=== PATIENT | female | born 1995 | race Caucasian/White ===

== ENCOUNTER → 2016-12-31 | Outpatient (CLI) | payer BC ==
[~2016-12-31] MED LIST: PREN-63
[2016-12-31 17:46] LABS: URINE APPEARANCE CLEAR (CLEAR); URINE BILIRUBIN NEG (NEG); URINE COLOR YELLOW; URINE NITRITE NEG (NEG); URINE PH 5.5 (4.5-7.5); URINE SPECIFIC GRAVITY 1.007 (1.000-1.030); UROBILINOGEN NEG (NEG)
[2016-12-31 17:56] LABS: MANUAL MICROSCOPIC REQUIRED? NO; REVIEW REQ? NO
== END | disposition home or self-care (01) ==
LOC: C.LABSPEC 17:29
PROVIDERS: ATTEND Obstetrics & Gynecology
DX: Z34.00 Encounter for supervision of normal first pregnancy, unspecified trimester (principal)

== ENCOUNTER → 2017-01-07 | Outpatient (CLI) | payer BC ==
[2017-01-10 23:56] LABS: CHLAMYDIA TRACH RNA*** NOT DETECTED (NOT DETECTED); GC (NEIS GONORRHOEAE)RNA** NOT DETECTED (NOT DETECTED)
== END | disposition home or self-care (01) ==
LOC: C.LABSPEC 17:44
PROVIDERS: ATTEND Obstetrics & Gynecology
DX: Z34.00 Encounter for supervision of normal first pregnancy, unspecified trimester (principal)

== ENCOUNTER → 2017-01-07 | Outpatient (CLI) | payer BC | END | disposition home or self-care (01) | LOC: C.PAPS 10:52 | PROVIDERS: ATTEND Obstetrics & Gynecology | DX: Z34.01 Encounter for supervision of normal first pregnancy, first trimester (principal) ==

== ENCOUNTER → 2017-01-07 | Outpatient (CLI) | payer BC ==
[2017-01-07 16:40] LABS: BASO % 0.3 %; BASO ABS # 0.03 K/uL (0-0.2); COMPLETE YES; EOS % 0.8 %; HEMATOCRIT 41.6 % (37-47); IG% 0.4 %; LYMPH % 16.2 %; LYMPH ABS # 1.69 K/uL (1.2-3.4); MEAN CELL VOLUME 91.4 fL (80-100); MEAN CORPUSCULAR HEMOGLOBIN 31.9 pg (25-34); MEAN CORPUSCULAR HGB CONC 34.9 g/dl (32-36); MEAN PLATELET VOLUME 10.7 fL (7.4-10.4); MONO % 6.8 %; NEUT % 75.5 %; PLATELET COUNT 269 K/uL (130-400); RED BLOOD COUNT 4.55 M/uL (4.2-5.4); WHITE BLOOD COUNT 10.45 K/uL (4.8-10.8)
== END | disposition home or self-care (01) ==
LOC: C.LAB1850 15:26
PROVIDERS: ATTEND Obstetrics & Gynecology
DX: Z34.00 Encounter for supervision of normal first pregnancy, unspecified trimester (principal)

== ENCOUNTER → 2017-03-04 | Outpatient (CLI) | payer BC ==
[2017-03-04 17:10] LABS: GTGD 50 Grams
== END | disposition home or self-care (01) ==
LOC: C.LAB1850 13:53
PROVIDERS: ATTEND Obstetrics & Gynecology
DX: O09.92 Supervision of high risk pregnancy, unspecified, second trimester (principal); Z3A.00 Weeks of gestation of pregnancy not specified

== ENCOUNTER → 2017-06-03 | Outpatient (CLI) | payer BC ==
[2017-06-03 16:29] LABS: GTGD 50 Grams
[2017-06-03 16:36] LABS: URINE APPEARANCE CLEAR (CLEAR); URINE BILIRUBIN NEG (NEG); URINE COLOR YELLOW; URINE EPITHELIAL CELL AUTO >30 /lpf (0-5); URINE NITRITE NEG (NEG); URINE PH 6.5 (4.5-7.5); UROBILINOGEN NEG (NEG)
[2017-06-03 17:03] LABS: MANUAL MICROSCOPIC REQUIRED? NO; REVIEW REQ? NO
== END | disposition home or self-care (01) ==
LOC: C.LAB1850 14:13
PROVIDERS: ATTEND Obstetrics & Gynecology
DX: O09.92 Supervision of high risk pregnancy, unspecified, second trimester (principal); Z3A.00 Weeks of gestation of pregnancy not specified

== ENCOUNTER → 2017-06-17 | Outpatient (CLI) | payer BC | END | disposition home or self-care (01) | LOC: C.LAB1850 08:19 | PROVIDERS: ATTEND Obstetrics & Gynecology | DX: O09.92 Supervision of high risk pregnancy, unspecified, second trimester (principal); Z3A.00 Weeks of gestation of pregnancy not specified; O28.1 Abnormal biochemical finding on antenatal screening of mother ==

== ENCOUNTER → 2017-07-22 | Outpatient (CLI) | payer BC | END | disposition home or self-care (01) | LOC: C.LABSPEC 17:29 | PROVIDERS: ATTEND Obstetrics & Gynecology | DX: Z34.03 Encounter for supervision of normal first pregnancy, third trimester (principal) ==

== ENCOUNTER 2017-08-08 19:00 | Outpatient (CLI) | payer BC ==
[2017-08-08] MEDS ORDERED: ACETAMINOPHEN 500 MG TAB PO STA (20:39)
[2017-08-09] MEDS ORDERED: PREN-63 (07:45)
== END 2017-08-08 21:05 | disposition home or self-care (01) ==
LOC: C.LD 19:00 → C.OPB 19:00
PROVIDERS: ATTEND Obstetrics & Gynecology
DX: O16.3 Unspecified maternal hypertension, third trimester (principal); Z3A.38 38 weeks gestation of pregnancy

== ENCOUNTER 2017-08-09 07:25 | Inpatient (IN) | payer BC ==
[~2017-08-09] VITALS: Ht 162.6 cm; Wt 86.8 kg
[2017-08-09] MEDS ORDERED: LACTATED RINGER'S 1000ML 500 ML IV PRN ×2 (07:30→15:10)
[2017-08-09] MEDS ORDERED: LACTATED RINGER'S 1000ML 1,000 ML IV PRN (07:30)
[2017-08-09] MEDS ORDERED: OXYTOCIN 30 UNITS/500ML NSS IV PRN ×2 (07:30→17:45)
[2017-08-09] MEDS ORDERED: PATIENT'S ALLERGY INFO NEEDS ENTERED SCH (07:45)
[2017-08-09] MEDS ORDERED: PREN-63 (07:45)
[2017-08-09 07:49] VITALS: Ht 162.6 cm; Wt 86.8 kg
[2017-08-09 08:00] LABS: HEMATOCRIT 36.6 % (37-47); MEAN CELL VOLUME 90.6 fL (80-100); MEAN CORPUSCULAR HEMOGLOBIN 31.9 pg (25-34); MEAN CORPUSCULAR HGB CONC 35.2 g/dl (32-36); MEAN PLATELET VOLUME 10.8 fL (7.4-10.4); PLATELET COUNT 199 K/uL (130-400); RED BLOOD COUNT 4.04 M/uL (4.2-5.4); WHITE BLOOD COUNT 14.66 K/uL (4.8-10.8)
[2017-08-09] MEDS ORDERED: LACTATED RINGER'S 1000ML 1,000 ML IV SCH ×2 (08:00→17:35)
[2017-08-09] MEDS ORDERED: FENTANYL 2MCG/ML ROPIV 1.25MG/ML 100ML BAG EPI ONE (09:37)
[2017-08-09] MEDS ORDERED: BUPIVACAINE 0.25% 30 ML VIAL ONE (09:37)
[2017-08-09] MEDS ORDERED: EpHEDrine SULFATE INJ 50 MG/ML AMP ONE (09:37)
[2017-08-09] MEDS ORDERED: FENTANYL CITRATE INJ 50 MCG/1 ML 2 ML VIAL ONE (09:38)
[2017-08-09] MEDS ORDERED: NALOXONE HCL INJ 1 MG in SODIUM CHLORIDE 0.9% 1000ML 1,000 ML IV PRN (15:10)
[2017-08-09] MEDS ORDERED: DiphenhydrAMINE HCL 50 MG/ML VIAL IV PRN (15:15)
[2017-08-09] MEDS ORDERED: NALOXONE HCL INJ 0.4 MG/1 ML VIAL/CARP IV PRN (15:15)
[2017-08-09] MEDS ORDERED: EpHEDrine SULFATE INJ 50 MG/ML AMP IV PRN (15:15)
[2017-08-09] MEDS ORDERED: NALBUPHINE HCL INJ 10 MG/ML AMP IV PRN (15:15)
[2017-08-09] MEDS ORDERED: FENTANYL 2MCG/ML ROPIV 1.25MG/ML 100ML BAG EPI PRN (15:15)
[2017-08-09] MEDS ORDERED: LANOLIN OINT EXT PRN ×2 (17:45)
[2017-08-09] MEDS ORDERED: HYDROCORTISONE ACETATE 25 MG SUPP PR PRN (17:45)
[2017-08-09] MEDS ORDERED: BENZOCAINE 20% AER SPR 82.5 GM CAN EXT PRN (17:45)
[2017-08-09] MEDS ORDERED: DIPHTHERIA/TETANUS/PERTUSSIS 0.5 ML SYR/VIAL IM. ONE (17:45)
[2017-08-09] MEDS ORDERED: ACETAMINOPHEN 325 MG TAB PO PRN (17:45)
[2017-08-09] MEDS ORDERED: SUPERCREAM 0.870 % 15GM JAR EXT PRN (17:45)
[2017-08-09] MEDS ORDERED: OXYCODONE/ACETAMINOPHEN 5-325 TAB PO PRN (17:45)
--- NOTE | 2017-08-09 18:09 | Anesthesia Procedure Note ---
Anesthesia Epidural Removal Nt Date & Time Aug 09, 2017 at 18:09 Vital Signs Pain Intensity: 2.0 Notes Mental Status: alert / awake / arousable, participated in evaluation Nausea / Vomiting: adequately controlled Pain: adequately controlled Airway Patency, RR, SpO2: stable & adequate BP & HR: stable & adequate Hydration State: stable & adequate Neuraxial Anesthesia: was administered, sensory block is resolving Anesthetic Complications: no major complications apparent, pt satisfied with anesthetic care Epidural: removed without complications, with tip intact
--- NOTE | 2017-08-09 19:20 | DELIVERY SUMMARY ---
DATE OF OPERATION: 08/09/2017 PREOPERATIVE DIAGNOSES: 1. Lopez intrauterine at 38 and 4/7 weeks. 2. Chronic hypertension. 3. Group B strep negative. POSTOPERATIVE DIAGNOSES: Same. PROCEDURE: Spontaneous vaginal delivery and repair of bilateral sulcal and second degree lacerations. SURGEON: Sherry Marx MD. KNOTTER HAND: None. ESTIMATED BLOOD LOSS: 300. COMPLICATIONS: None. DISPOSITION: Stable to labor and delivery. DESCRIPTION: Myrna is a 21-year-old G1, P0 with chronic hypertension. She was brought for an induction due to that diagnosis. A Coleman bulb was placed by my partner Dr. Navas and the patient returned for her induction in the morning of 08/09/2017. Upon her return, Pitocin was started. She was eventually provided with an epidural for pain management and artificial rupture of membranes as well. Once the patient reached to complete dilation, she was coached through her second stage and I was called to the room for delivery. The patient was prepped and over the next several pushes, she delivered the head of the in an occiput anterior position. The 's right shoulder was the anterior one. A single nuchal cord was reduced and then with the next push, the anterior, then posterior shoulders and the reminder of the body delivered. The was placed on the maternal abdomen. The cord was cut after being doubly clamped and the infant was vigorous immediately upon delivery. The placenta was spontaneously delivered and intact with a 3-vessel cord. Examination of the cervix, vagina and perineum revealed bilateral sulcal lacerations and a second degree laceration with a fairly large flap of the labia having become torn free on the right side. The patient's anesthesia was adequate. The nurse was able to glove and assist me with retraction. Under these conditions with good visualization, I was first able to repair the left sulcal tear which was the larger of the two with a 2-0 Vicryl in a running locked manner. I then repaired the right sulcal tear also with 2-0 Vicryl in a running locked manner. The labial flap was carefully examined to determine how to correctly anatomically reapproximate this. There was significant edema and although the proximal portion of the flap was relatively easy to restore to an anatomically correct location, the proximal portion was fairly shredded and swollen. I was concerned that it would not have adequate vascularity to heal well, therefore trimming was done of the distal 1 cm portion of this labial flap. With this done, all edges were easy to reapproximate in a normal fashion and the remaining posterior fourchette/perineal portion of the laceration was repaired incorporating this labial flap as for a typical second degree tear. [place] suture was used to rebuild the perineal body. At the completion of all repairs, a digital rectal exam was done which showed no rectal injury and no rectal sutures. Sponge count was correct and complete and at the completion of repair, the fundus was firm, lochia was minimal and mother and were both in good condition having tolerated delivery well. I attest to the content of the Intraoperative Record and any orders documented therein. Any exception s are noted below.
[2017-08-09] MEDS: IBUPROFEN 600 MG TAB PO PRN (19:49)
--- NOTE | 2017-08-09 19:49 | Medical Student: [facility] ---
Med Student History & Physical Date of Service Aug 09, 2017. Chief Complaint Induction History of Present Illness Source: patient 21yo at 38 4/7 with medical history significant for chronic HTN presented for induction. Pt had placement of tariq bulb for IOL on evening of 08/08/17 and shortly thereafter began to experience contractions. Pt reported that tariq bulb fell out at some point during the night. By this morning (08/09/17) , pt was experiencing stronger and more frequent contractions; approximately Q5 min. Currently, pt reports no loss of fluid and no vaginal bleeding. Pt feels movement. OB History Pt is . was complicated by slightly elevated blood pressure; BP ranged from 128/74 to 140/100. Pt reports chronic HTN, but has never been on anti-hypertensives. Past Medical History 1.) chronic HTN Past Surgical History 1.) wisdom teeth extraction Family History Mother- late 50s; no medical conditions Father- late 50s; HTN Paternal grandfather- from lung cancer, stroke Social History Denies tobacco, alcohol, and illicit drug use. 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 ) Allergies Coded Allergies: No Known Allergies (Unverified , 08/09/17) Home Medications Multivit-Min W/Fe-Fa (Pre-Carey Formula) Review of Systems Constitutional: No fever, No chills Eyes: No worsening of vision, No eye pain ENT: No hearing loss, No nasal symptoms, No sore throat, No trouble swallowing Respiratory: No cough, No wheezing, No shortness of breath Cardiovascular: No chest pain, No palpitations Abdomen: No nausea, No vomiting, No diarrhea, No constipation Musculoskeletal: No joint pain, No muscle pain, No swelling, No calf pain Genitourinary - Female: No dysuria Psychiatric: No depression symptoms Hematologic / Lymphatic: No abnormal bleeding/bruising Integumentary: No rash, No new/changing skin lesions Monitoring External Monitor: 150-160 with moderate variability and accelerations. No decelerations. Category 1 tracing. Tocodynamometer: Q2 min Laboratory Results 08/09/17 07:45 Test 08/09/17 07:45 Red Blood Count 4.04 M/uL (4.2-5.4) Mean Corpuscular Volume 90.6 fL (80-100) Mean Corpuscular Hemoglobin 31.9 pg (25-34) Mean Corpuscular Hemoglobin Concent 35.2 g/dl (32-36) RDW Standard Deviation 42.8 fL (36.4-46.3) RDW Coefficient of Variation 12.9 % (11.5-14.5) Mean Platelet Volume 10.8 fL (7.4-10.4) Nucleated RBC Absolute Count (auto) 0.02 K/uL (0-0) Nucleated Red Blood Cells % 0.1 % Assessment and Plan A: 21yo at 38 4/7 with hx of chronic HTN currently in labor. Pitocin started at 07:30. Contractions Q2min. Recently received epidural. Most recent cervix check: 5/80%/+1. Rh+/RI/GBS neg. P: 1.) continue to monitor FHT and toco 2.) continue cervix checks for adequate progression 3.) consider AROM
[2017-08-09 20:15] VITALS: BP 130/84; PULSE 111; TEMP 37.5; O2SAT 96
[2017-08-09] MEDS: DOCUSATE SODIUM 100 MG CAP PO SCH (20:47)
[2017-08-09 23:05] VITALS: BP 114/79; PULSE 85; TEMP 37
[2017-08-10 04:30] VITALS: BP 124/78; PULSE 77; TEMP 36.4
[2017-08-10 06:45] LABS: HEMATOCRIT 29.6 % (37-47)
--- NOTE | 2017-08-10 06:59 | Progress Note ---
Subjective Aug 10, 2017. Subjective conversation w/ patient, physical exam Ambulation: ambulating normally Voiding: no voiding problems Passing Gas: Yes Diet Tolerance: Regular Diet Lochia: Moderate Feeding Type: Breast Feeding Pain: controlled Review of Systems Respiratory: No shortness of breath Cardiac: No chest pain Female : No dysuria Objective Vital Signs Date Time Temp Pulse Resp B/P (MAP) Pulse Ox O2 Delivery O2 Flow Rate FiO2 08/10/17 04:30 36.4 77 18 124/78 (93) Room Air 08/09/17 23:05 Room Air 08/09/17 23:05 37.0 85 18 114/79 (91) Room Air 08/09/17 21:27 Room Air 08/09/17 20:15 37.5 111 18 130/84 (99) 96 Room Air Physical Exam General Appearance: WELL-APPEARING, WD/WN, NO APPARENT DISTRESS Respiratory/Chest: lungs clear, normal breath sounds, no respiratory distress Cardiovascular: regular rate, rhythm, no gallop Abdomen: normal bowel sounds, soft Fundus: Firm, Tender (appropriately tender), Relation to Umbilicus (at level of U) Extremities: non-tender, normal inspection Laboratory Results Last 24 Hours Test 08/09/17 07:45 08/10/17 06:17 White Blood Count 14.66 K/uL Red Blood Count 4.04 M/uL Hemoglobin 12.9 g/dL 9.9 g/dL Hematocrit 36.6 % 29.6 % Mean Corpuscular Volume 90.6 fL Mean Corpuscular Hemoglobin 31.9 pg Mean Corpuscular Hemoglobin Concent 35.2 g/dl RDW Standard Deviation 42.8 fL RDW Coefficient of Variation 12.9 % Platelet Count 199 K/uL Mean Platelet Volume 10.8 fL Nucleated RBC Absolute Count (auto) 0.02 K/uL Nucleated Red Blood Cells % 0.1 % Assessment and Plan Post- Day#: 1 Continue Routine Care: Pt is 21 yo female (now1), delivered vaginally 08/09 at approximately 1700 Vital signs reviewed and wnl Hbg 12.9 on admission, 9.9 this morning. Stable. O+/ GBS -/ RI Pt doing well clinically, desires to stay another night to get all questions answered. Continue routine post care, monitor lochia, pain control with tylenol/motrin, push fluids, encourage ambulation/. KRIS JO FMR PGY 1. Resident Physician Supervision Note: I interviewed and examined the patient. Discussed with Dr. Jo and agree with findings and plan as documented in the note. Any exceptions or clarifications are listed here: [None] Documented By: Sherry Marx Resident Tracking Resident Involvement: Resident Care Provided Care Provided: OB Delivery
--- NOTE | 2017-08-10 07:14 | Discharge Instructions ---
Discharge Instructions Date of Service Aug 10, 2017. Admission Reason for Admission: Induction Discharge Discharge Diagnosis / Problem: Spontaneous Vaginal Delivery Discharge Goals Goal(s): Routine recovery after delivery Medications Continue Dispensed Medications: supercream, dermaplast, tucks, lansinoh Activity Recommendations Activity Limitations: per Instructions/Follow-up section . Instructions / Follow-Up Instructions / Follow-Up ACTIVITY RECOMMENDATIONS: * Gradual return to full activity over the next 2-3 weeks. * No lifting - nothing heavier than baby over the next 2-3 weeks. * Do not engage in vigorous exercise, sexual activity or sports until cleared by your physician. * Do not drive or operate any motorized equipment until cleared by your physician. * You may shower/bathe daily. MEDICATIONS: For discomfort or pain, you may use Acetaminophen (Tylenol), Ibuprofen (Advil), or Naproxen (Aleve) following the package directions. For constipation you may use Colace following the package directions. BREAST CARE: If you are not breast feeding: * Wear a supportive bra 24 hours a day for one to two weeks. * Avoid stimulating your breasts and nipples as much as possible during the first few weeks after delivery. * When taking a shower, have the warm water hit your back, not breasts. * When your breasts feel full, apply ice packs. Usually three to four times a day helps ease the discomfort. * Take a mild pain medication (Tylenol / Motrin) when you are uncomfortable. If breast feeding: * Use breast milk to lubricate nipples. Lansinoh cream may be used for sore nipples. You do not need to remove cream prior to breast feeding. If using a different brand of cream, check the label for directions regarding removal of cream prior to nursing. * Wear a supportive bra. * If having problems with breasts or breast feeding, call a reporting process consultant or your health care provider. EPISIOTOMY CARE: After delivery, if you have an episiotomy (stitches), the following steps will ease discomfort and aid healing. * For the first 24 hours after delivery, place ice packs next to your episiotomy to help reduce swelling. * After the first 24 hour-period, sitz baths, either portable or in the tub, are suggested. A shower with a shower arm sprayed over the episiotomy may be comforting. * Mary Anne care should be done after each voiding and bowel movement. Squirt warm water from a plastic bottle over the perineum (region of the body between the anus and urinary opening) and pat dry. * Use Dermoplast to ease discomfort. Shake container. [place] directly over the episiotomy. Place a Tucks on a clean sanitary pad next to your episiotomy. SPECIAL CARE INSTRUCTIONS: When you are discharged from the hospital, it is important for you to follow the instructions listed below: * During the first week at home, you should be able to care for yourself and your baby. In addition, the usual light household activities are encouraged. * Limit your activities to the way you feel. Do not try to clean the house or move furniture. Be sensible. * If you actively engage in sports and have done so up until the time of your delivery, you may resume these activities as soon as you feel able. This may take up to one month or even longer. Use good judgment. * Continue to take your vitamins for at least six weeks after the of your baby. * Your diet need not be limited unless you were on a special diet before your delivery. Breast-feeding mothers need around 2500 calories per day and at least 64-80 ounces of fluid per day (8 to 10 glasses). * You should eat foods from the four major food groups. Crash diets or fad diets are to be avoided. Eating lean meats, fresh fruits and vegetables, low-fat dairy products, high fiber foods and a regular exercise program, will help you get back to your pre- weight without putting your health at risk. * Constipation is sometimes a problem after delivery. Take a mild laxative as needed. If breast feeding, Milk of Magnesia is acceptable to use. You may use a suppository or Fleets enema if no episiotomy. * A daily shower or tub bath is suggested. Be sure to thoroughly and gently dry the perineum. * A bloody vaginal discharge will usually continue until around four weeks post . A small amount of bleeding may continue for as long as six weeks. Vaginal discharge changes from the bright red bleeding after delivery to pink then brownish and finally yellowish-pink before becoming white and disappearing. * Bleeding may increase with activity. Your first period may come in 4-8 weeks. If you are breast feeding, your period may be delayed even longer. * Bandana (sex) can begin whenever both you and your partner feel comfortable and do not have any form of genital infection. It is recommended that you wait at least six weeks for internal and external healing to occur. If you have questions, please talk to your health care practitioner. A condom should be used to prevent infection and . * Foreplay, gentle intercourse and lubrication is very important the first several times to prevent pain. A water-based lubricant such as K-Y jelly or Astroglide may be used. * If you have RH negative blood and your baby is RH positive, you will receive RHOGAM by injection prior to discharge. The nurse will give you a card to keep with you that has the date and place that you received RHOGAM after delivery. * During your care, you had a Rubella screen done to check for the presence of rubella antibodies in your blood. If your test was negative, you will receive a Rubella vaccine prior to discharge. This vaccine may cause a fever, soreness at the injection site and flu-like symptoms. If these symptoms persist, notify your health care practitioner. is not advised for one month after a Rubella vaccine. * Verbalizes understanding of car seat law as reviewed with patient nursing. * Car Seat hand-out given and reviewed with patient by nursing. * Shaken baby information reviewed with patient by nursing. Call you doctor if: * Heavy bleeding (saturating several pads an hour) or passing clots the size of your fist. * A fever >101 degrees F (38.3 degrees C) on two occasions four hours apart and /or chills. * Unusual pain in the pelvic or vaginal areas. * "Baby Blues" lasting longer than two weeks. If you have any questions or concerns, call your health care practitioner at . FOLLOW UP VISIT: * Please call the office at to schedule a 6 week examination. It is important you keep this appointment. It is important for you to make arrangements for either yearly or twice yearly check-ups thereafter. Current Hospital Diet Patient's current hospital diet: Regular OB Diet Discharge Diet Recommended Diet: Regular OB Diet Pending Studies Studies pending at discharge: no Medical Emergencies . Who to Call and When: Medical Emergencies: If at any time you feel your situation is an emergency, please call 911 immediately. . Non-Emergent Contact Non-Emergency issues call your: Primary Care Provider . . "Provider Documentation" section prepared by Emi Jo. . VTE Core Measure Inpt VTE Proph given/why not?: Treatment not indicated
[2017-08-10 07:40] VITALS: BP 131/87; PULSE 94; TEMP 36.4; O2SAT 99
--- NOTE | 2017-08-10 07:44 | Medical Student: [facility] ---
Med Student [employer] Progress Nt Date of Service Aug 10, 2017. Subjective conversation w/ patient Notes: 21yo day 1 of induced vaginal delivery at 38 4/7 for chronic HTN. Pt is feeling tired, but well this morning. Since delivery she has been ambulating w/o lightheadedness and eating w/o nausea/vomiting. She slept about 3-4hrs total last night as she is . Voiding w/o difficulty. No BM yet. Pt reports bleeding/lochia is slowing. Currently reports no pain from secondary laceration repair. Denies fever and chills. Rest of ROS is negative. Review of Systems Constitutional: No fever, No chills Respiratory: No cough, No shortness of breath Cardiac: No chest pain, No palpitations Abdomen: No pain, No nausea, No vomiting Female : No dysuria Objective Vital Signs Date Time Temp Pulse Resp B/P (MAP) Pulse Ox O2 Delivery O2 Flow Rate FiO2 08/10/17 04:30 36.4 77 18 124/78 (93) Room Air 08/09/17 23:05 Room Air 08/09/17 23:05 37.0 85 18 114/79 (91) Room Air 08/09/17 21:27 Room Air 08/09/17 20:15 37.5 111 18 130/84 (99) 96 Room Air Physical Exam General Appearance: WELL-APPEARING, WD/WN, NO APPARENT DISTRESS Respiratory/Chest: lungs clear, normal breath sounds Cardiovascular: regular rate, rhythm, no edema, no murmur Abdomen: non tender, soft, + abnormal bowel sounds (hypoactive bowel sounds) Fundus: Firm, Non-Tender, Relation to Umbilicus (right of umbilicus) Extremities: non-tender, normal inspection, no calf tenderness, + pedal edema ( trace) Laboratory Results Last 24 Hours Test 08/09/17 07:45 08/10/17 06:17 White Blood Count 14.66 K/uL Red Blood Count 4.04 M/uL Hemoglobin 12.9 g/dL 9.9 g/dL Hematocrit 36.6 % 29.6 % Mean Corpuscular Volume 90.6 fL Mean Corpuscular Hemoglobin 31.9 pg Mean Corpuscular Hemoglobin Concent 35.2 g/dl RDW Standard Deviation 42.8 fL RDW Coefficient of Variation 12.9 % Platelet Count 199 K/uL Mean Platelet Volume 10.8 fL Nucleated RBC Absolute Count (auto) 0.02 K/uL Nucleated Red Blood Cells % 0.1 % Assessment and Plan Post- Day Number: 1 Continue Routine Care: 21yo day 1: vital signs reviewed- stable Hgb 12.9, 9.9- stable O+/RI/GBSneg Continue to monitor pain and healing from second degree laceration. Pt doing well and OK for d/c after 24hrs post-delivery.
[2017-08-10] MEDS: PRENATAL VITAMIN TAB PO SCH (07:57)
[2017-08-10] MEDS: DOCUSATE SODIUM 100 MG CAP PO SCH ×2 (07:57→19:42)
[2017-08-10 13:20] VITALS: BP 140/82; PULSE 104; TEMP 36.6; O2SAT 97
[2017-08-10] MEDS: IBUPROFEN 600 MG TAB PO PRN (15:23)
[2017-08-10 16:20] VITALS: BP 125/81; PULSE 102; TEMP 37
[2017-08-10 23:15] VITALS: BP 120/79; PULSE 99; TEMP 36.5; O2SAT 98
--- NOTE | 2017-08-11 06:42 | Progress Note ---
Subjective Aug 11, 2017. Subjective conversation w/ patient, physical exam, chart review, lab review Ambulation: ambulating normally Voiding: no voiding problems Passing Gas: Yes Diet Tolerance: Regular Diet Lochia: Moderate Feeding Type: Breast Feeding Pain: controlled Review of Systems Respiratory: No shortness of breath Cardiac: No chest pain Abdomen: No nausea, No vomiting Female : No dysuria Objective Vital Signs Date Time Temp Pulse Resp B/P (MAP) Pulse Ox O2 Delivery O2 Flow Rate FiO2 08/10/17 23:15 Room Air 08/10/17 23:15 36.5 99 16 120/79 (93) 98 Room Air 08/10/17 16:20 37.0 102 18 125/81 (96) Room Air 08/10/17 16:20 Room Air 08/10/17 13:20 36.6 104 20 140/82 (101) 97 Room Air 08/10/17 07:40 36.4 94 20 131/87 (102) 99 Room Air 08/10/17 07:40 99 Room Air Physical Exam General Appearance: WELL-APPEARING, WD/WN, NO APPARENT DISTRESS Respiratory/Chest: lungs clear, normal breath sounds, no respiratory distress Cardiovascular: regular rate, rhythm Abdomen: normal bowel sounds, soft Fundus: Firm, Non-Tender, Relation to Umbilicus (1 below U) Extremities: non-tender, normal inspection Assessment and Plan Post- Day#: 2 Continue Routine Care: Pt is 21 yo female (now1), delivered vaginally 08/09 at approximately 1700 Vital signs reviewed and wnl Hbg 12.9 on admission, 9.9 yesterday morning. Stable. O+/ GBS -/ RI Pt doing well clinically, Continue routine post care, monitor lochia, pain control with tylenol/motrin, push fluids, encourage ambulation/ . Pt counselled on discharge instructions. Anticipate discharge later today. KRIS JO FMR PGY 1. Resident Physician Supervision Note: I interviewed and examined the patient. Discussed with Dr. Jo and agree with findings and plan as documented in the note. Any exceptions or clarifications are listed here: D/C instructions given Documented By: Arnold Zamarripa Resident Tracking Resident Involvement: Resident Care Provided Care Provided: OB Delivery
[2017-08-11] MEDS: PRENATAL VITAMIN TAB PO SCH (07:23)
[2017-08-11] MEDS: DOCUSATE SODIUM 100 MG CAP PO SCH (07:23)
[2017-08-11 07:30] VITALS: BP 126/87; PULSE 90; TEMP 37; O2SAT 97
[2017-08-11 10:45] VITALS: BP_DIAS 87; PULSE 90; TEMP 37
== END 2017-08-11 10:50 | disposition home or self-care (01) | DRG 774 ==
LOC: C.LD 07:25 → C.OBG 19:58
PROVIDERS: ADMIT Obstetrics & Gynecology; ATTEND Obstetrics & Gynecology
PROC: 10E0XZZ Delivery of Products of Conception, External Approach (ICD-10-PCS; principal; 2017-08-09)
PROC: 0KQM0ZZ Repair Perineum Muscle, Open Approach (ICD-10-PCS; principal; 2017-08-09)
PROC: 3E033VJ Introduction of Other Hormone into Peripheral Vein, Percutaneous Approach (ICD-10-PCS; principal; 2017-08-09)
DX: O16.3 Unspecified maternal hypertension, third trimester (principal); O70.1 Second degree perineal laceration during delivery; Z37.0 Single live birth; Z3A.38 38 weeks gestation of pregnancy

== ENCOUNTER 2019-06-07 08:07 | Inpatient (IN) ==
[2019-06-07] MEDS ORDERED: OXYTOCIN 30 UNITS/500 ML BAG IV PRN ×2 (09:02→17:40)
--- NOTE | 2019-06-07 09:09 | History & Physical Report ---
Date of Service June 07, 2019 Assessment & Plan (1) Normal labor: admit. epidural on demand, arom/pit as indicated. fetus catgory one, rare small variable. anticipate . History of Present Illness Chief Complaint: contractions Primary Care Provider: NO PCP Patien roselia callejas with iup at 40 6/7 weeks who presents to labor and delivery with contractions since last night. Worsening in the early am. +spotting. no lof. +vb. uncomplicated. O+/ab-/pap neg/ri/rprnr/hepb-/hiv-/gc/ct-/low risk panorama/ gbs neg/2 hr gtt x 2 nl Allergies Allergy/AdvReac Type Severity Reaction Status Date / Time No Known Drug Allergies Allergy Unknown Verified 06/07/19 08:16 Home Medications Home Medications Medication Instructions Recorded Confirmed Type vit-iron fum-folic ac 1 tab PO DAILY 06/07/19 06/07/19 History [ Vitamin] Patient History Medical History History of induced hypertension (spontaneous vaginal delivery) 07/2017 38 weeks gestation of (Resolved) Chronic hypertension affecting (Resolved) History of varicella Surgical History S/P wisdom tooth extraction Family History Grandmother (Paternal) Colorectal cancer Grandfather (Maternal) Diabetes Hypertension Father Hypertension Social History Preferred Language: Urdu Communication Ability: Effective Beliefs That Will Affect Care: None marital status: Single Current Living Situation: Family Other Information That Helps Us Care for You: No Feels Safe at Home: Yes Safety Concerns: Feels Safe At This Time Smoking Status: Never smoker Hx Alcohol Use: No Hx Substance Use: No OB History g1--07/29, , 6#11oz, complicated by pih [employer]ATING [employer]ER History no sts, no abnl paps Review of Systems All systems reviewed & are unremarkable except as noted in HPI & below Physical Exam Constitutional: WD/WN, vitals as above Gastrointestinal (Abdomen): soft, nt, gravid Psychiatric: A+Ox3, euthymic affect Genitourinary: cx--4/90/-2 toco--q3-5min efm--140s with mod variability, small accels, small decels Results & Data Vital Signs (Past 12 Hours) Vital Signs Temp Pulse Resp BP 06/07/19 08:40 91 H 134/85 06/07/19 08:21 36.6 C 16 Code Status & VTE Plan VTE Prophylaxis Plan VTE Prophylaxis will be ordered: No
[2019-06-07] MEDS: LACTATED RINGER'S 1,000 ML IV PRN ×3 (09:24→12:42)
[2019-06-07 09:26] LABS: Hematocrit (blood only) 34.3 % (37-47); Hemoglobin 11.4 g/dL (12.0-16.0); Mean Corpuscular Hemoglobin 29.1 pg (25-34); Mean Corpuscular Volume 87.5 fL (80-100); Platelet Count 179 K/uL (130-400); RDW Coefficient of Variation 13.9 % (11.5-14.5); RDW Standard Deviation 44.2 fL (36.4-46.3); Red Blood Count 3.92 M/uL (4.2-5.4); White Blood Count 10.23 K/uL (4.8-10.8)
[2019-06-07 09:35] LABS: Mean Corpuscular Hgb Conc 33.2 g/dL (32-36)
[2019-06-07] MEDS ORDERED: ePHEDrine sulfate 50 MG/ML AMP ONE (11:06)
[2019-06-07] MEDS ORDERED: BUPIVACAINE 0.25% 30 ML VIAL ONE (11:06)
[2019-06-07] MEDS ORDERED: fentaNYL citrate 100 MCG/2 ML VIAL ONE (11:07)
[2019-06-07] MEDS ORDERED: fentaNYL 2MCG/ML ROPIV 1.25MG/ML 100 ML BAG EPI ONE (11:07)
[2019-06-07] MEDS ORDERED: fentaNYL 2MCG/ML ROPIV 1.25MG/ML 100 ML BAG EPI PRN (11:40)
[2019-06-07] MEDS ORDERED: ONDANSETRON INJ 2 MG/ML 2 ML VIAL IV PRN (11:40)
[2019-06-07] MEDS ORDERED: ePHEDrine sulfate 50 MG/ML AMP IV PRN (11:40)
[2019-06-07] MEDS ORDERED: PROMETHAZINE HCL 6.25 MG in SODIUM CHLORIDE 0.9% 50 ML IV PRN (11:40)
[2019-06-07] MEDS ORDERED: NALOXONE HCL 0.4 MG/1 ML VIAL/CARP IV PRN (11:40)
[2019-06-07] MEDS ORDERED: NALOXONE HCL 1 MG in SODIUM CHLORIDE 0.9% 1000ML 1,000 ML IV PRN (11:40)
[2019-06-07] MEDS ORDERED: DiphenhydrAMINE HCL 50 MG/ML VIAL IV PRN (11:40)
[2019-06-07] MEDS ORDERED: NALBUPHINE HCL INJ 10 MG/ML AMP IV PRN (11:40)
--- NOTE | 2019-06-07 11:40 | Anesthesiology Consultation ---
Date of Service June 07, 2019 Assessment & Plan (1) Encounter for pre-operative examination: Chart Review Chart Review: Patient NOT seen in Pre Admission Testing and Acceptable Risk for Labor Epidural Consults Requested none ASA ASA2 Proposed Anesthesia Anesthesia Type: Labor Epidural Risk / Benefits Reviewed With: PT / POA / Parent / Guardian, Accepts Plan and Informed Consent Obtained History Height/Weight Height: 5 ft 4 in Weight: 84.368 kg Allergies Allergy/AdvReac Type Severity Reaction Status Date / Time No Known Drug Allergies Allergy Unknown Verified 06/07/19 08:16 Medications Home Medications Medication Instructions Recorded Confirmed Last Taken vit-iron fum-folic ac 1 tab PO DAILY 06/07/19 06/07/19 06/06/19 [ Vitamin] Active Medications Generic Name Dose Route Start Last Admin Trade Name Freq PRN Reason Stop Dose Admin Lactated Ringer's 1,000 mls @ 125 mls/hr 06/07/19 09:02 06/07/19 11:34 Lr IV 06/09/19 09:01 999 mls/hr .Q8H PRN Administration L&D Protocol Protocol NPO Date Last Intake of Fluids: 06/07/19 Time Last Intake of Fluids: 10:00 Date Last Intake of Solids: 06/07/19 Time Last Intake of Solids: 06:00 Past Medical History Medical History History of induced hypertension (spontaneous vaginal delivery) 07/2017 38 weeks gestation of (Resolved) Chronic hypertension affecting (Resolved) History of varicella Exercise / Class Metabolic Activity II 4-5 Yardwork/Stairs/Walk up hill Past Family History Family History Grandmother (Paternal) Colorectal cancer Grandfather (Maternal) Diabetes Hypertension Father Hypertension Past Surgical History Surgical History S/P wisdom tooth extraction Past Anesthesia History No Hx of Anesthesia Complications and No Family Hx of Anesthesia Complications History of PONV No Hx of PONV and No Hx of Motion Sickness Social History Smoking Status: Never smoker Hx Alcohol Use: No Hx Substance Use: No Physical Exam Vital Signs Last Vital Signs Temp 36.6 C 06/07/19 08:21 Pulse 106 H 06/07/19 11:38 Resp 16 09/26/19 08:21 BP 123/76 06/07/19 11:38 Pulse Ox 96 06/07/19 11:38 ENMT Mouth: no dentition abnormality Thyromental Distance: > or= 3.5 Finger Breadths Mallampati Class: II Neck normal visual inspection Respiratory normal respiratory effort Auscultation: lungs clear to auscultation bilaterally Cardiovascular Rate/Rhythm: regular rate and regular rhythm Psychiatric Orientation: alert Testing Laboratory Results 06/07/19 09:17
--- NOTE | 2019-06-07 13:02 | Labor Progress Brief Note ---
Date of Service June 07, 2019 Subjective comfortable after epidural Assessment & Plan (1) Normal labor: continue expectant managment. fetus mostly category one. anticipate . Physical Exam Constitutional: WD/WN, vitals as above Psychiatric: A+Ox3, euthymic affect Genitourinary: cx--5.5/90/-2 arom--thin green mec toco--a3-5min efm--140s wtih mod variability, +accels, rare variable Results & Data Vital Signs (Past 12 Hours) Vital Signs Temp Pulse Resp BP Pulse Ox 06/07/19 12:59 91 H 97 06/07/19 12:54 124 H 98 06/07/19 12:51 127 H 109/74 06/07/19 12:49 113 H 99 06/07/19 12:44 109 H 99 06/07/19 12:39 105 H 98 06/07/19 12:34 92 H 121/77 99 06/07/19 12:29 95 H 98 06/07/19 12:24 97 H 99 06/07/19 12:19 88 120/77 100 06/07/19 12:14 112 H 98 06/07/19 12:09 107 H 98 06/07/19 12:04 103 H 126/74 98 06/07/19 12:02 111 H 112/71 06/07/19 12:00 36.7 C 84 18 123/75 06/07/19 11:59 81 96 06/07/19 11:58 107 H 114/72 06/07/19 11:55 78 118/70 06/07/19 11:54 110 H 88/47 L 100 06/07/19 11:52 98 H 104/69 06/07/19 11:50 110 H 98/59 L 06/07/19 11:49 109 H 97 06/07/19 11:48 78 109/67 06/07/19 11:46 74 88/55 L 06/07/19 11:45 78 96/53 L 06/07/19 11:44 79 61/38 L 98 06/07/19 11:42 83 111/57 L 06/07/19 11:40 100 H 97/53 L 06/07/19 11:38 106 H 123/76 96 06/07/19 11:36 97 H 123/82 06/07/19 11:34 69 131/81 06/07/19 11:33 69 98 06/07/19 11:32 76 123/83 06/07/19 11:30 63 122/80 06/07/19 11:28 63 99 06/07/19 11:23 93 H 98 06/07/19 11:22 76 132/89 06/07/19 11:18 76 95 06/07/19 08:40 91 H 134/85 06/07/19 08:21 36.6 C 16
--- NOTE | 2019-06-07 15:33 | Labor Progress Brief Note ---
Date of Service June 07, 2019 Subjective comfortable Assessment & Plan (1) Normal labor: doing well. continue current management. fetus category one. Physical Exam Constitutional: WD/WN, vitals as above Psychiatric: A+Ox3, euthymic affect Genitourinary: cx--9/c/0 toco--q3-5min efm--130s with mod variability, accels to 160s, rare epidural Results & Data Vital Signs (Past 12 Hours) Vital Signs Temp Pulse Resp BP Pulse Ox 06/07/19 15:29 92 H 99 06/07/19 15:24 83 98 06/07/19 15:20 76 121/73 06/07/19 15:19 76 98 06/07/19 15:14 76 98 06/07/19 15:09 75 97 06/07/19 15:04 82 121/77 98 06/07/19 15:01 36.7 C 16 06/07/19 15:00 18 06/07/19 14:59 81 98 06/07/19 14:54 78 98 06/07/19 14:50 81 115/69 06/07/19 14:49 76 97 06/07/19 14:44 76 98 06/07/19 14:39 80 97 06/07/19 14:34 83 110/66 97 06/07/19 14:29 79 97 06/07/19 14:24 83 97 06/07/19 14:20 80 117/70 06/07/19 14:19 80 97 06/07/19 14:14 82 97 06/07/19 14:09 89 97 06/07/19 14:05 78 125/70 06/07/19 14:04 84 98 06/07/19 14:00 37.0 C 16 06/07/19 13:59 92 H 97 06/07/19 13:54 98 H 98 06/07/19 13:50 81 113/68 06/07/19 13:49 79 97 06/07/19 13:44 87 97 06/07/19 13:39 84 97 06/07/19 13:35 83 116/71 06/07/19 13:34 79 97 06/07/19 13:29 88 97 06/07/19 13:24 90 98 06/07/19 13:20 89 118/75 06/07/19 13:19 89 97 06/07/19 13:14 98 H 98 06/07/19 13:09 85 97 06/07/19 13:05 100 H 114/75 06/07/19 13:04 95 H 98 06/07/19 12:59 91 H 97 06/07/19 12:58 36.4 C L 22 06/07/19 12:54 124 H 98 06/07/19 12:51 127 H 109/74 06/07/19 12:49 113 H 99 06/07/19 12:44 109 H 99 06/07/19 12:39 105 H 98 06/07/19 12:34 92 H 121/77 99 06/07/19 12:29 95 H 98 06/07/19 12:24 97 H 99 06/07/19 12:19 88 120/77 100 06/07/19 12:14 112 H 98 06/07/19 12:09 107 H 98 06/07/19 12:04 103 H 126/74 98 06/07/19 12:02 111 H 112/71 06/07/19 12:00 36.7 C 84 18 123/75 06/07/19 11:59 81 96 06/07/19 11:58 107 H 114/72 06/07/19 11:55 78 118/70 06/07/19 11:54 110 H 88/47 L 100 06/07/19 11:52 98 H 104/69 06/07/19 11:50 110 H 98/59 L 06/07/19 11:49 109 H 97 06/07/19 11:48 78 109/67 06/07/19 11:46 74 88/55 L 06/07/19 11:45 78 96/53 L 06/07/19 11:44 79 61/38 L 98 06/07/19 11:42 83 111/57 L 06/07/19 11:40 100 H 97/53 L 06/07/19 11:38 106 H 123/76 96 06/07/19 11:36 97 H 123/82 06/07/19 11:34 69 131/81 06/07/19 11:33 69 98 06/07/19 11:32 76 123/83 06/07/19 11:30 63 122/80 06/07/19 11:28 63 99 06/07/19 11:23 93 H 98 06/07/19 11:22 76 132/89 06/07/19 11:18 76 95 06/07/19 08:40 91 H 134/85 06/07/19 08:21 36.6 C 16
[2019-06-07] MEDS ORDERED: METHYLERGONOVINE MALEATE 0.2 MG/ML AMP ONE (17:04)
[2019-06-07] MEDS ORDERED: OXYCODONE/ACETAMINOPHEN 5mg/325mg TAB PO PRN (17:34)
[2019-06-07] MEDS ORDERED: ACETAMINOPHEN 325 MG TAB PO PRN (17:34)
[2019-06-07] MEDS ORDERED: METHYLERGONOVINE MALEATE 0.2 MG/ML AMP IM ONE (17:40)
[2019-06-07] MEDS ORDERED: SUPERCREAM 0.870% 15 GM JAR EXT PRN (17:40)
[2019-06-07] MEDS ORDERED: bisacodyL 10 MG SUPP PR PRN (17:40)
[2019-06-07] MEDS ORDERED: BENZOCAINE 20% AER SPR 82.5 GM CAN EXT PRN (17:40)
[2019-06-07] MEDS ORDERED: DIPHTHERIA/TETANUS/PERTUSSIS 0.5 ML SYR/VIAL IM ONE (17:40)
[2019-06-07] MEDS ORDERED: HYDROCORTISONE ACETATE 25 MG SUPP PR PRN (17:40)
--- NOTE | 2019-06-07 17:40 | Delivery Summary ---
Vaginal Delivery Summary Date of Service June 07, 2019 Vaginal Delivery Summary Pre-operative Diagnosis: at 40 6/7 weeks labor Post-operative Diagnosis: same thin meconium Procedure: epidural arom second degree and bilateral labial laceration repair--complicated EBL: 475cc Anesthesia: epidural Procedure: The patient pushed for several contractions to deliver a viable male in carrie position. A nuchal cord times one was reduced and the rest of the infant was then delivered without difficulty. The baby was vigorous. The nose and mouth were again bulb suctioned and the infant was placed in the maternal abdomen for drying and attention. Cord was clamped and cut at one minute of life. Cord blood and segment obtained. Placenta was manually extracted. Uterus explored and no further pocs noted. Cervix/sulci/rectum were intact. A second degree perineal laceration and bilateral labial lacerations was repaired in the normal standard fashion. This took about 30 minutes to achieve. Hemostasis obtained with dilute pitocin and fundal massage and im methergine. Apgars were 7/9. Mother and baby doing well at the end of the delivery. The sponge count was 19 at the end of the delivery. 20 counted initially. Vagina explored several times and sponge not in vagina. All other materials examined, placenta examined, etc and were not able to locate the sponge. I am confident that the sponge is NOT within the patient. Bladder drained of a few hundred ccs of urine prior to the repair.
--- NOTE | 2019-06-07 18:52 | Anesthesia Procedure Note ---
Date of Service June 07, 2019 Anesthesia Post Epidural Note Vital Signs Vital Signs: Temp Pulse Resp BP Pulse Ox 36.7 C 85 16 124/74 98 06/07/19 15:01 06/07/19 18:47 06/07/19 15:01 06/07/19 18:47 06/07/19 16:59 Notes Mental Status: alert / awake / arousable Nausea / Vomiting: adequately controlled Pain: adequately controlled Airway Patency, RR, SpO2: stable & adequate BP & HR: stable & adequate Hydration State: stable & adequate Neuraxial Anesthesia: was administered and sensory block is resolving Anesthetic Complications: no major complications apparent and Pt Satisfied with anesthetic care Epidural: Removed without complications and With tip intact
[2019-06-07] MEDS: DOCUSATE SODIUM 100 MG CAP PO SCH (20:28)
[2019-06-07] MEDS: IBUPROFEN 600 MG TAB PO PRN (23:32)
--- NOTE | 2019-06-08 06:15 | Obstetrical Progress Note ---
Date of Service <Kritsen Wall DO - Last Filed: 06/08/19 06:43> June 08, 2019 Assessment & Plan <Kristen Wall DO - Last Filed: 06/08/19 06:43> (1) Encounter for care and examination after delivery: 23 yo F PPD#1 following vaginal delivery, doing well and without complaints this morning. - PPD #1 - Feels well, ambulating well, voiding well. Still with constipation and obstipation. - Will continue routine care. - Following d/c will have f/u in 6 weeks. - Blood type O+, Rubella immune. Subjective <Kristen Wall DO - Last Filed: 06/08/19 06:43> Myrna is a 23 yo female ; PPD # 1 following vaginal delivery at 40w6d; doing well this AM; no abdominal cramping/pain; voiding well, no passing gas and no BM; tolerating meals overnight, able to ambulate some within the room. Some persistent spotting this morning but improved from yesterday. Review of Systems Constitutional: denies fever, chills, sweats, headache Respiratory: denies SOB, difficulty breathing Cardiac: denies CP, chest palpitations, chest pressure Breast: denies breast pain : denies dysuria Physical Exam <DO Drake Benoit Last Filed: 06/08/19 06:43> General: patient is alert and oriented, in NAD Cardiac: +S1/S2, no murmurs rubs or gallops Respiratory: lungs CTA b/l, anteriorly and posteriorly, no wheezes rales or rhonchi, no increased work of breathing, symmetric chest rise, no respiratory distress Abdomen: soft, NT, +bowel sounds Uterus: uterine fundus firm, palpable 3cm below the umbilicus Lower Extremities: no LE edema or swelling, no deep calf pain, Wendi's sign negative b/l Results & Data <DO Drake Benoit Last Filed: 06/08/19 06:43> Vital Signs (Past 12 Hours) Vital Signs Temp Pulse Pulse Resp BP BP Pulse Ox 06/08/19 03:10 37 C 80 16 124/70 97 06/07/19 23:25 37.1 C 80 16 131/84 97 06/07/19 20:20 37 C 82 18 128/75 95 06/07/19 20:02 37.3 C 92 H 20 123/73 06/07/19 19:47 90 122/74 06/07/19 19:32 96 H 20 121/76 06/07/19 19:17 90 123/72 06/07/19 19:02 84 20 122/72 06/07/19 18:47 85 124/74 06/07/19 18:32 71 16 120/72 06/07/19 18:17 77 20 136/75 Laboratory Results Laboratory Results - last 24 hr 06/07/19 09:17 WBC 10.23 RBC 3.92 L Hgb 11.4 L Hct 34.3 L MCV 87.5 MCH 29.1 MCHC 33.2 RDW Std Deviation 44.2 RDW Coeff of Opal 13.9 Plt Count 179 MPV 11.0 H Medications Administered Current Medications Acetaminophen (Tylenol) 650 mg PO Q6H PRN PRN Reason: Pain/CHOWDHURY/Fever Stop: 07/07/19 17:33 Benzocaine (Dermoplast Pain Relieving [place]) 1 appln EXT PRN PRN PRN Reason: Perineal Discomfort Stop: 07/07/19 17:39 Last Admin: 06/07/19 20:28 Dose: 82.5 appln Documented by: Bisacodyl (Dulcolax) 5 mg PO 1999 [facility] Stop: 06/08/19 20:01 Bisacodyl (Dulcolax) 10 mg GA DAILY PRN PRN Reason: No BM on 2nd post- day Stop: 07/07/19 17:39 Cocaine HCl (Supercream 0.870%) 1 gm EXT BID PRN PRN Reason: Hemorrhoidal Inflammation Stop: 06/21/19 17:39 Docusate Sodium (Colace) 100 mg PO DAILY@08,21 [facility] Stop: 07/07/19 20:59 Last Admin: 06/07/19 20:28 Dose: 100 mg Documented by: Hydrocortisone (Anusol Hc) 25 mg GA BID PRN PRN Reason: Hemorrhoidal Inflammation Stop: 07/07/19 17:39 Oxytocin (Pitocin) 30 units in 500 mls @ 333.333 mls/hr IV .Q1H30M PRN; Protocol PRN Reason: Bleeding Control Stop: 07/07/19 17:39 Ibuprofen (Motrin) 600 mg PO Q4H PRN PRN Reason: Pain/CHOWDHURY/Cramping/Fever Stop: 07/07/19 17:33 Last Admin: 06/07/19 23:32 Dose: 600 mg Documented by: Oxycodone/Acetaminophen (Percocet 5mg/325mg) 1 tab PO Q4H PRN PRN Reason: Pain not relieved by... Stop: 06/21/19 17:33 Prenat Multivit/Clutch Assembler/Iron/Folic Ac ( Vitamin) 1 tab PO DAILY@08 [facility] Stop: 07/08/19 07:59 <Mirlande Quinones MD, FACOG - Last Filed: 06/08/19 07:19> Co-Signing Physician Notes Resident Physician Supervision Note: I interviewed and examined the patient. Discussed with Dr. Garcia and agree with findings and plan as documented in the note. Any exceptions or clarifications are listed here: Doing well. Desires d/c at 24 hours. If all goes well, will d/c after dinner. Instructions reviewed. Documented By: Mirlande Quinones MD, FACOG Resident Activity Tracking <Kristen Wall DO - Last Filed: 06/08/19 06:43> Resident Involvement: Resident Care Provided Care Provided: Adult Hospital Medicine
[2019-06-08 07:00] LABS: Hematocrit (blood only) 29.3 % (37-47); Hemoglobin 9.6 g/dL (12.0-16.0)
[2019-06-08] MEDS: IBUPROFEN 600 MG TAB PO PRN ×2 (07:48→15:51)
[2019-06-08] MEDS: DOCUSATE SODIUM 100 MG CAP PO SCH (07:48)
[2019-06-08] MEDS ORDERED: PRENATAL VITAMIN 1 TAB PO SCH (08:00)
[2019-06-08] MEDS ORDERED: bisacodyL 5 MG TABEC PO SCH (20:00)
== END 2019-06-08 19:10 | disposition home or self-care (01) | DRG 807 ==
LOC: OPB 08:07 → 4S1 08:07 → 4S2 20:21